=== PATIENT | male | born 1935 | race Caucasian/White ===

== ENCOUNTER 2018-08-04 11:07 | Inpatient (IN) | payer MEDICARE, MEDICAID ==
[~2018-08-04] VITALS: Ht 177.8 cm; Wt 87.3 kg
[2018-08-04] MEDS ORDERED: FUROSEMIDE 40MG/4ML VIAL IV ONE (11:45)
[2018-08-04 12:20] LABS: BASOPHILS % 0.4 % (0.0-2.0); EOSINOPHILS % 0.8 % (0.0-5.0); HEMATOCRIT. 40.3 % (42.0-52.0); HEMOGLOBIN. 13.4 g/dL (14.0-18.0); LYMPHOCYTES % 15.7 % (20.0-50.0); MEAN CORPUSCULAR HEMOGLOBIN 29.2 pg (28.0-32.0); MEAN CORPUSCULAR VOLUME 87.8 fL (80.0-94.0); MONOCYTES % 7.7 % (2.0-8.0); NEUTROPHILS % 75.4 % (40.0-76.0); PLATELET 309 x1000/uL (130-400); RED BLOOD CELL COUNT 4.59 mill/uL (4.7-6.1); RED CELL DISTRIBUTION WIDTH 14.5 % (11.6-14.6)
[2018-08-04 12:26] LABS: INR 1.5; PARTIAL THROMBOPLASTIN TIME 53.8 sec (23.4-31.0); PROTHROMBIN TIME 14.5 sec (9.1-11.1)
[2018-08-04 12:32] LABS: CHLORIDE 99 mEq/L (98-107)
[2018-08-04 12:39] LABS: ETHANOL BLOOD < 10 mg/dL
[2018-08-04 13:25] LABS: CLARITY URINE CLEAR (CLEAR); COLOR URINE YELLOW (YELLOW); KETONES URINE NEGATIVE (NEGATIVE); LEUKOCYTE ESTERASE URINE 2+ (NEGATIVE); NITRITE URINE NEGATIVE (NEGATIVE); OCCULT BLOOD URINE NEGATIVE (NEGATIVE); PROTEIN URINE NEGATIVE (NEGATIVE); SPECIFIC GRAVITY URINE 1.012 (1.005-1.030); UROBILINOGEN URINE 0.2 E.U./dL (0.2-1.0)
[2018-08-04] MEDS ORDERED: DILTIAZEM HCL 5MG/ML 5ML VIAL IV SCH (17:00)
[2018-08-04] MEDS ORDERED: ONDANSETRON HCL 4MG/2ML INJ IV ONE (17:15)
[2018-08-04] MEDS ORDERED: ACETAMINOPHEN 325MG TABLET PO PRN (20:15)
[2018-08-04] MEDS ORDERED: ENOXAPARIN 40MG/0.4ML SYR SUBCUT SCH (20:15)
[2018-08-04] MEDS ORDERED: CLONIDINE 0.1MG TABLET PO PRN (20:15)
[2018-08-04] MEDS ORDERED: HYDROCODONE/ACETAMINOPHEN 5/325MG TABLET PO PRN (20:15)
[2018-08-04] MEDS ORDERED: ONDANSETRON HCL 4MG/2ML INJ IV PRN (20:15)
[2018-08-04 22:00] VITALS: BP 136/87
[2018-08-04 22:49] VITALS: BP 136/87
[2018-08-05] VITALS (11 sets, daily range): BP systolic 98–150; BP diastolic 56–83
[2018-08-05 00:59] LABS: CREATINE KINASE MB FRACTION 1.1 ng/mL (0.5-3.6)
[2018-08-05] MEDS ORDERED: UBID300C PO (01:40)
[2018-08-05] MEDS ORDERED: DABI150C MT (01:40)
[2018-08-05] MEDS ORDERED: LORA10TA7 PO (01:40)
[2018-08-05] MEDS ORDERED: MIRA25TA PO (01:40)
[2018-08-05] MEDS ORDERED: CHOL200010 PO (01:40)
[2018-08-05] MEDS ORDERED: ACET-2708 PO (01:40)
[2018-08-05] MEDS ORDERED: POTA99TA4 PO (01:40)
[2018-08-05] MEDS ORDERED: METO-539 MT (01:40)
[2018-08-05] MEDS ORDERED: [UNRECOGNIZED DRUG - CODE] PO (01:50)
[2018-08-05] MEDS ORDERED: ALPR0.5T PO (01:50)
[2018-08-05] MEDS ORDERED: SPIR25TA6 PO (01:50)
[2018-08-05] MEDS ORDERED: FURO80TA3 PO (01:50)
[2018-08-05] MEDS ORDERED: GLV55 PO (01:50)
[2018-08-05 06:15] LABS: BASOPHILS % 0.3 % (0.0-2.0); EOSINOPHILS % 0.3 % (0.0-5.0); HEMATOCRIT. 39.8 % (42.0-52.0); HEMOGLOBIN. 13.1 g/dL (14.0-18.0); LYMPHOCYTES % 13.2 % (20.0-50.0); MEAN CORPUSCULAR VOLUME 88.2 fL (80.0-94.0); MEAN PLATELET VOLUME 8.1 fl (7.4-10.4); MONOCYTES % 7.1 % (2.0-8.0); NEUTROPHILS % 79.1 % (40.0-76.0); PLATELET 281 x1000/uL (130-400); RED BLOOD CELL COUNT 4.51 mill/uL (4.7-6.1); RED CELL DISTRIBUTION WIDTH 14.5 % (11.6-14.6)
[2018-08-05 06:36] LABS: CHLORIDE 101 mEq/L (98-107)
[2018-08-05 06:44] LABS: CREATINE KINASE 36 IU/L (39-308); CREATINE KINASE MB FRACTION 1.1 ng/mL (0.5-3.6); HDL CHOLESTEROL 44 mg/dL (40-59); LDL CHOLESTEROL 83 mg/dL (5-100)
[2018-08-05] MEDS ORDERED: DEXTROSE 50% WATER 50ML SYRINGE IV PRN (06:45)
[2018-08-05] MEDS: BLOOD SUGAR DIAGNOSTIC STRIP TEST SCH ×4 (07:39→21:11)
[2018-08-05] MEDS: INSULIN LISPRO 100 UNITS/ML SUBCUT SCH ×4 (08:00→21:18)
[2018-08-05] MEDS ORDERED: FUROSEMIDE 40MG/4ML VIAL IV SCH (09:00)
[2018-08-05] MEDS ORDERED: CEFTRIAXONE 2 G PREMIX 50 ML IV SCH (17:00)
[2018-08-05] MEDS: FUROSEMIDE 40MG/4ML VIAL IV SCH (17:56)
[2018-08-05] MEDS: APIXABAN 5 MG TABLET PO SCH (17:56)
[2018-08-05] MEDS: NITROGLYCERIN OINT 1GM/INCH UDPKT TD SCH (21:16)
[2018-08-06] VITALS (14 sets, daily range): BP systolic 100–137; BP diastolic 52–84
[2018-08-06 06:19] LABS: BASOPHILS % 0.6 % (0.0-2.0); EOSINOPHILS % 0.7 % (0.0-5.0); HEMATOCRIT. 39.5 % (42.0-52.0); HEMOGLOBIN. 13.3 g/dL (14.0-18.0); LYMPHOCYTES % 17.8 % (20.0-50.0); MEAN CORPUSCULAR HEMOGLOBIN 29.5 pg (28.0-32.0); MEAN CORPUSCULAR VOLUME 87.6 fL (80.0-94.0); MEAN PLATELET VOLUME 8.5 fl (7.4-10.4); MONOCYTES % 8.9 % (2.0-8.0); PLATELET 270 x1000/uL (130-400); RED BLOOD CELL COUNT 4.51 mill/uL (4.7-6.1); RED CELL DISTRIBUTION WIDTH 14.3 % (11.6-14.6)
[2018-08-06] MEDS: BLOOD SUGAR DIAGNOSTIC STRIP TEST SCH ×4 (07:30→20:06)
[2018-08-06] MEDS: INSULIN LISPRO 100 UNITS/ML SUBCUT SCH ×4 (08:00→21:03)
[2018-08-06] MEDS: APIXABAN 5 MG TABLET PO SCH ×2 (08:52→18:51)
[2018-08-06] MEDS: FUROSEMIDE 40MG/4ML VIAL IV SCH ×2 (08:52→18:51)
[2018-08-06] MEDS: NITROGLYCERIN OINT 1GM/INCH UDPKT TD SCH ×2 (08:53→21:04)
[2018-08-06] MEDS: POTASSIUM CHLORIDE 10MEQ TABLET SR PO SCH (08:53)
[2018-08-06] MEDS ORDERED: POLYETHYLENE GLYCOL 3350 (17GM) 1 DOSE PACK PO SCH (12:45)
[2018-08-06] MEDS ORDERED: NA PHOS,M-B/NA PHOS,DI-BA ENEMA 118ML PR SCH (12:45)
[2018-08-06] MEDS ORDERED: CEFTRIAXONE 2 G in DEXTROSE 5% WATER 50 ML IV SCH (17:00)
[2018-08-06] MEDS: DOCUSATE SODIUM 100MG CAPSULE PO PRN (18:51)
[2018-08-06] MEDS: NITROFURANTOIN 100MG M/M CAPSULE PO SCH (21:01)
[2018-08-06] MEDS: ALPRAZOLAM 0.5 MG TABLET PO PRN (21:01)
[2018-08-07] VITALS (10 sets, daily range): BP systolic 97–127; BP diastolic 53–77
[2018-08-07 07:19] LABS: BASOPHILS % 0.5 % (0.0-2.0); EOSINOPHILS % 1.1 % (0.0-5.0); HEMATOCRIT. 38.7 % (42.0-52.0); HEMOGLOBIN. 12.9 g/dL (14.0-18.0); LYMPHOCYTES % 22.6 % (20.0-50.0); MEAN CORPUSCULAR HEMOGLOBIN 29.2 pg (28.0-32.0); MEAN CORPUSCULAR VOLUME 87.5 fL (80.0-94.0); MEAN PLATELET VOLUME 8.4 fl (7.4-10.4); MONOCYTES % 9.6 % (2.0-8.0); NEUTROPHILS % 66.2 % (40.0-76.0); PLATELET 259 x1000/uL (130-400); RED BLOOD CELL COUNT 4.42 mill/uL (4.7-6.1); RED CELL DISTRIBUTION WIDTH 14.2 % (11.6-14.6)
[2018-08-07] MEDS: BLOOD SUGAR DIAGNOSTIC STRIP TEST SCH ×4 (07:30→20:57)
[2018-08-07] MEDS: NITROGLYCERIN OINT 1GM/INCH UDPKT TD SCH ×2 (08:20→21:01)
[2018-08-07] MEDS: INSULIN LISPRO 100 UNITS/ML SUBCUT SCH ×4 (08:21→21:07)
[2018-08-07] MEDS: APIXABAN 5 MG TABLET PO SCH ×2 (08:22→18:31)
[2018-08-07] MEDS: POTASSIUM CHLORIDE 10MEQ TABLET SR PO SCH (08:22)
[2018-08-07] MEDS: FUROSEMIDE 40MG/4ML VIAL IV SCH ×2 (08:22→18:31)
[2018-08-07] MEDS: NITROFURANTOIN 100MG M/M CAPSULE PO SCH ×2 (08:22→21:01)
[2018-08-07] MEDS: ALPRAZOLAM 0.5 MG TABLET PO PRN ×2 (10:33→23:06)
[2018-08-08] VITALS: BP 122/66
[2018-08-08 04:00] VITALS: BP 129/67
[2018-08-08] MEDS: BLOOD SUGAR DIAGNOSTIC STRIP TEST SCH ×2 (06:28→12:04)
[2018-08-08 07:05] LABS: BASOPHILS % 0.5 % (0.0-2.0); EOSINOPHILS % 1.3 % (0.0-5.0); HEMATOCRIT. 38.3 % (42.0-52.0); LYMPHOCYTES % 23.3 % (20.0-50.0); MEAN CORPUSCULAR HEMOGLOBIN 29.7 pg (28.0-32.0); MEAN CORPUSCULAR VOLUME 87.2 fL (80.0-94.0); MEAN PLATELET VOLUME 8.1 fl (7.4-10.4); MONOCYTES % 10.9 % (2.0-8.0); PLATELET 275 x1000/uL (130-400); RED BLOOD CELL COUNT 4.39 mill/uL (4.7-6.1); RED CELL DISTRIBUTION WIDTH 14.2 % (11.6-14.6)
[2018-08-08 08:00] VITALS: BP 125/63
[2018-08-08] MEDS: NITROFURANTOIN 100MG M/M CAPSULE PO SCH (08:08)
[2018-08-08] MEDS: FUROSEMIDE 40MG/4ML VIAL IV SCH (08:08)
[2018-08-08] MEDS: POTASSIUM CHLORIDE 10MEQ TABLET SR PO SCH (08:08)
[2018-08-08] MEDS: NITROGLYCERIN OINT 1GM/INCH UDPKT TD SCH (08:08)
[2018-08-08] MEDS: DOCUSATE SODIUM 100MG CAPSULE PO PRN (08:08)
[2018-08-08] MEDS: APIXABAN 5 MG TABLET PO SCH (08:09)
[2018-08-08] MEDS: INSULIN LISPRO 100 UNITS/ML SUBCUT SCH ×2 (08:10→13:30)
[2018-08-08] MEDS ORDERED: POTASSIUM CHLORIDE 20MEQ TABLET SR PO NR (09:30)
[2018-08-08] MEDS ORDERED: NA PHOS,M-B/NA PHOS,DI-BA ENEMA 118ML PR SCH (10:30)
[2018-08-08] MEDS ORDERED: LACTULOSE 20G/30ML UDC PO SCH (10:30)
[2018-08-08 12:00] VITALS: BP 131/58
[2018-08-08 13:39] VITALS: BP 131/58
== END 2018-08-08 15:08 | disposition home health service (06) | DRG 871 ==
LOC: ER 11:07 → 5EST 16:43 → EDBEDREQ 16:45 → EDBEDREQTM 16:45 → EDBEDREQSVC 17:08 → ENRESERV 19:59 → 5EST 08-05 00:07 → 6WST 08-07 23:02
PROVIDERS: ADMIT Hospitalist; ATTEND Hospitalist
DX: A40.9 Streptococcal sepsis, unspecified (principal); J96.00 Acute respiratory failure, unspecified whether with hypoxia or hypercapnia; I50.43 Acute on chronic combined systolic (congestive) and diastolic (congestive) heart failure; D68.59 Other primary thrombophilia; I48.92 Unspecified atrial flutter; N39.0 Urinary tract infection, site not specified; B95.2 Enterococcus as the cause of diseases classified elsewhere; E11.9 Type 2 diabetes mellitus without complications; F41.9 Anxiety disorder, unspecified; H91.90 Unspecified hearing loss, unspecified ear; I11.0 Hypertensive heart disease with heart failure; I25.10 Atherosclerotic heart disease of native coronary artery without angina pectoris; I27.20 Pulmonary hypertension, unspecified; I34.0 Nonrheumatic mitral (valve) insufficiency; I44.7 Left bundle-branch block, unspecified; I48.2 Chronic atrial fibrillation; K59.00 Constipation, unspecified; Z79.01 Long term (current) use of anticoagulants; Z79.02 Long term (current) use of antithrombotics/antiplatelets; Z79.4 Long term (current) use of insulin; Z98.52 Vasectomy status
CPT/HCPCS: 36415; 71045; 80048; 80061; 82550; 82553; 82962; 83880; 84484; 87077; 87186; 93005; 93306; 93970; 96374; 96375; 97162; 97535; 99285; G0482; J0696; J1815; J1940; J2405; J3490; J7050; J7060

== ENCOUNTER 2018-11-18 09:45 | Inpatient (IN) | payer MEDICARE, MEDICAID ==
[~2018-11-18] VITALS: Ht 175.3 cm; Wt 103.0 kg
[~2018-11-18 09:45] MED LIST: ACET-2708 PO; ALPR0.5T PO; CHOL200010 PO; FURO80TA3 PO; GLV55 PO; LORA10TA7 PO; METO-539 MT; MIRA25TA PO; POTA99TA4 PO; SPIR25TA6 PO; UBID300C PO; [UNRECOGNIZED DRUG - CODE] PO
[2018-11-18] MEDS ORDERED: SODIUM CHLORIDE 0.9% 1,000 ML IV ONE (10:21)
[2018-11-18] MEDS ORDERED: MORPHINE SULFATE 4 MG/ML CPJ (NOT FOR IM USE) IV STA (10:21)
[2018-11-18] MEDS ORDERED: ONDANSETRON HCL 4MG/2ML INJ IV STA (10:21)
[2018-11-18 11:04] LABS: BASOPHILS % 0.2 % (0.0-2.0); HEMOGLOBIN. 13.2 g/dL (14.0-18.0); LYMPHOCYTES % 8.2 % (20.0-50.0); MEAN CORPUSCULAR HEMOGLOBIN 26.1 pg (28.0-32.0); MEAN CORPUSCULAR VOLUME 83.2 fL (80.0-94.0); MEAN PLATELET VOLUME 9.6 fl (7.4-10.4); MONOCYTES % 11.1 % (2.0-8.0); NEUTROPHILS % 80.5 % (40.0-76.0); PLATELET 217 x1000/uL (130-400); RED BLOOD CELL COUNT 5.04 mill/uL (4.7-6.1); RED CELL DISTRIBUTION WIDTH 15.3 % (11.6-14.6)
[2018-11-18 13:33] LABS: CLARITY URINE CLOUDY (CLEAR); COLOR URINE DARK YELLOW (YELLOW); KETONES URINE NEGATIVE (NEGATIVE); LEUKOCYTE ESTERASE URINE 1+ (NEGATIVE); NITRITE URINE NEGATIVE (NEGATIVE); OCCULT BLOOD URINE NEGATIVE (NEGATIVE); PROTEIN URINE NEGATIVE (NEGATIVE); SPECIFIC GRAVITY URINE 1.017 (1.005-1.030)
[2018-11-18 14:36] LABS: CHLORIDE 100 mEq/L (98-107)
[2018-11-18] MEDS ORDERED: CALCIUM CHLORIDE 1GM/10ML SYR IV ONE (14:45)
[2018-11-18] MEDS ORDERED: INSULIN REGULAR (HUMULIN R) 300UNITS/3ML IV ONE (14:45)
[2018-11-18] MEDS ORDERED: DEXTROSE 50% WATER 50ML SYRINGE IV ONE (14:45)
[2018-11-18] MEDS ORDERED: SODIUM BICARBONATE 8.4% 1 MEQ/ML 50ML SYR IV ONE (14:45)
[2018-11-18] MEDS ORDERED: ASPIRIN 325MG TABLET PO ONE (15:15)
[2018-11-18 16:45] VITALS: BP 135/71
[2018-11-18] MEDS ORDERED: SODIUM POLYSTYRENE SULFONATE 15 G/60 ML BOT PO NR (18:00)
[2018-11-18] MEDS ORDERED: IPRATROPIUM/ALBUTEROL 0.5-3(2.5)MG/3ML NEB HHN PRN (18:15)
[2018-11-18 18:49] VITALS: BP 131/88
[2018-11-18] MEDS ORDERED: DEXTROSE 50% WATER 50ML SYRINGE IV PRN (19:30)
[2018-11-18] MEDS: DEXT 5%/0.9% NACL 1,000 ML IV SCH (19:54)
[2018-11-18 20:00] VITALS: BP 136/87
[2018-11-18] MEDS: PIPERACILLIN/TAZ 3.375G PREMIX 50 ML IV SCH (20:22)
[2018-11-18] MEDS: INSULIN LISPRO 100 UNITS/ML SUBCUT SCH (21:00)
[2018-11-18] MEDS: BLOOD SUGAR DIAGNOSTIC STRIP TEST SCH (21:12)
[2018-11-18] MEDS: DILTIAZEM HCL 60MG TABLET PO SCH (21:13)
[2018-11-18] MEDS: FAMOTIDINE 20MG/2ML VIAL IV SCH (21:13)
[2018-11-18] MEDS: ENOXAPARIN 30MG/0.3ML SYR SUBCUT SCH (21:14)
[2018-11-18] MEDS: INSULIN GLARGINE UD 100 UNITS/ML SYR SUBCUT SCH (21:16)
[2018-11-19] VITALS: BP 122/70
[2018-11-19] MEDS: IPRATROPIUM/ALBUTEROL 0.5-3(2.5)MG/3ML NEB HHN SCH ×4 (01:16→22:13)
[2018-11-19] MEDS: PIPERACILLIN/TAZ 3.375G PREMIX 50 ML IV SCH ×4 (01:34→21:12)
[2018-11-19 04:00] VITALS: BP 144/83
[2018-11-19] MEDS: DILTIAZEM HCL 60MG TABLET PO SCH ×3 (05:49→21:12)
[2018-11-19 06:20] LABS: HEMATOCRIT. 41.8 % (42.0-52.0); HEMOGLOBIN. 13.2 g/dL (14.0-18.0); MEAN CORPUSCULAR HEMOGLOBIN 26.2 pg (28.0-32.0); MEAN CORPUSCULAR VOLUME 83.2 fL (80.0-94.0); MEAN PLATELET VOLUME 9.4 fl (7.4-10.4); PLATELET 157 x1000/uL (130-400); RED BLOOD CELL COUNT 5.02 mill/uL (4.7-6.1); RED CELL DISTRIBUTION WIDTH 15.5 % (11.6-14.6)
[2018-11-19] MEDS: BLOOD SUGAR DIAGNOSTIC STRIP TEST SCH ×4 (06:34→21:12)
[2018-11-19] MEDS: INSULIN LISPRO 100 UNITS/ML SUBCUT SCH ×4 (07:50→21:54)
[2018-11-19 08:00] VITALS: BP 108/56
[2018-11-19] MEDS: ENOXAPARIN 30MG/0.3ML SYR SUBCUT SCH ×2 (09:51→21:13)
[2018-11-19] MEDS: INSULIN GLARGINE UD 100 UNITS/ML SYR SUBCUT SCH ×2 (10:00→21:55)
[2018-11-19 12:00] VITALS: BP 130/53
[2018-11-19] MEDS ORDERED: SODIUM POLYSTYRENE SULFONATE 15 G/60 ML BOT PO NR (12:30)
[2018-11-19] MEDS: DEXT 5%/0.9% NACL 1,000 ML IV SCH (13:10)
[2018-11-19 16:00] VITALS: BP 115/62
[2018-11-19] MEDS ORDERED: INSULIN REGULAR (HUMULIN R) UD 100 UNITS/ML SYR IV NR (16:30)
[2018-11-19 20:00] VITALS: BP 123/77
[2018-11-19] MEDS: FAMOTIDINE 20MG/2ML VIAL IV SCH (21:12)
[2018-11-20] VITALS: BP 137/77
[2018-11-20] MEDS: HYDROMORPHONE HCL/PF 2MG/ML CPJ IV PRN (01:59)
[2018-11-20] MEDS: PIPERACILLIN/TAZ 3.375G PREMIX 50 ML IV SCH ×4 (02:12→21:17)
[2018-11-20] MEDS: IPRATROPIUM/ALBUTEROL 0.5-3(2.5)MG/3ML NEB HHN SCH ×4 (02:50→20:59)
[2018-11-20 04:00] VITALS: BP 134/84
[2018-11-20] MEDS: DILTIAZEM HCL 60MG TABLET PO SCH ×3 (06:06→21:17)
[2018-11-20] MEDS: BLOOD SUGAR DIAGNOSTIC STRIP TEST SCH ×4 (06:23→20:39)
[2018-11-20 07:00] LABS: HEMATOCRIT. 42.3 % (42.0-52.0); HEMOGLOBIN. 13.3 g/dL (14.0-18.0); MEAN CORPUSCULAR HEMOGLOBIN 26.1 pg (28.0-32.0); MEAN CORPUSCULAR VOLUME 83.1 fL (80.0-94.0); MEAN PLATELET VOLUME 9.6 fl (7.4-10.4); PLATELET 166 x1000/uL (130-400); RED BLOOD CELL COUNT 5.09 mill/uL (4.7-6.1); RED CELL DISTRIBUTION WIDTH 15.6 % (11.6-14.6)
[2018-11-20 08:00] VITALS: BP 107/68
[2018-11-20] MEDS: INSULIN LISPRO 100 UNITS/ML SUBCUT SCH ×4 (08:48→21:15)
[2018-11-20] MEDS: ENOXAPARIN 30MG/0.3ML SYR SUBCUT SCH (08:51)
[2018-11-20] MEDS: INSULIN GLARGINE UD 100 UNITS/ML SYR SUBCUT SCH ×2 (09:49→21:16)
[2018-11-20] MEDS ORDERED: FUROSEMIDE 20MG/2ML VIAL IVP SCH (10:00)
[2018-11-20 12:00] VITALS: BP 110/62
[2018-11-20 12:51] LABS: PLATELET ESTIMATE NORMAL
[2018-11-20 16:00] VITALS: BP 121/56
[2018-11-20 20:04] VITALS: BP 127/47
[2018-11-20] MEDS: FAMOTIDINE 20MG/2ML VIAL IV SCH (20:38)
[2018-11-21 00:11] VITALS: BP 118/51
[2018-11-21] MEDS: IPRATROPIUM/ALBUTEROL 0.5-3(2.5)MG/3ML NEB HHN SCH ×4 (01:39→21:29)
[2018-11-21 04:46] VITALS: BP 98/43
[2018-11-21] MEDS: PIPERACILLIN/TAZ 3.375G PREMIX 50 ML IV SCH ×3 (05:17→21:39)
[2018-11-21] MEDS: DILTIAZEM HCL 60MG TABLET PO SCH ×3 (05:17→21:39)
[2018-11-21] MEDS: BLOOD SUGAR DIAGNOSTIC STRIP TEST SCH ×4 (06:55→21:39)
[2018-11-21] MEDS: INSULIN LISPRO 100 UNITS/ML SUBCUT SCH ×4 (07:50→21:48)
[2018-11-21 08:00] VITALS: BP 103/49
[2018-11-21] MEDS: ENOXAPARIN 40MG/0.4ML SYR SUBCUT SCH (08:51)
[2018-11-21 09:44] LABS: PLATELET ESTIMATE NORMAL
[2018-11-21] MEDS: INSULIN GLARGINE UD 100 UNITS/ML SYR SUBCUT SCH ×2 (10:15→21:48)
[2018-11-21] MEDS: FUROSEMIDE 40MG/4ML VIAL IVP SCH ×2 (11:08→17:45)
[2018-11-21 12:00] VITALS: BP 112/67
[2018-11-21 16:00] VITALS: BP 109/59
[2018-11-21 20:00] VITALS: BP 118/61
[2018-11-21] MEDS: FAMOTIDINE 20MG/2ML VIAL IV SCH (21:39)
[2018-11-21] MEDS: HYDROMORPHONE HCL/PF 2MG/ML CPJ IV PRN (23:45)
[2018-11-22] VITALS (8 sets, daily range): BP systolic 106–129; BP diastolic 60–73
[2018-11-22] MEDS: IPRATROPIUM/ALBUTEROL 0.5-3(2.5)MG/3ML NEB HHN SCH ×4 (02:52→20:41)
[2018-11-22] MEDS: PIPERACILLIN/TAZ 3.375G PREMIX 50 ML IV SCH (05:51)
[2018-11-22] MEDS: FUROSEMIDE 40MG/4ML VIAL IVP SCH (05:52)
[2018-11-22] MEDS: BLOOD SUGAR DIAGNOSTIC STRIP TEST SCH ×4 (05:52→21:27)
[2018-11-22] MEDS: DILTIAZEM HCL 60MG TABLET PO SCH ×3 (05:52→21:26)
[2018-11-22 07:10] LABS: HEMATOCRIT. 39.5 % (42.0-52.0); HEMOGLOBIN. 12.3 g/dL (14.0-18.0); MEAN CORPUSCULAR VOLUME 83.4 fL (80.0-94.0); MEAN PLATELET VOLUME 9.5 fl (7.4-10.4); PLATELET 141 x1000/uL (130-400); RED BLOOD CELL COUNT 4.74 mill/uL (4.7-6.1); RED CELL DISTRIBUTION WIDTH 15.9 % (11.6-14.6)
[2018-11-22] MEDS: INSULIN LISPRO 100 UNITS/ML SUBCUT SCH ×4 (08:51→21:29)
[2018-11-22] MEDS: ENOXAPARIN 40MG/0.4ML SYR SUBCUT SCH (08:54)
[2018-11-22 13:08] LABS: PLATELET ESTIMATE NORMAL
[2018-11-22] MEDS: INSULIN GLARGINE UD 100 UNITS/ML SYR SUBCUT SCH ×2 (13:11→21:28)
[2018-11-22] MEDS: PIPERACILLIN/TAZ 2.25G PREMIX 50 ML IV SCH ×2 (13:17→21:26)
[2018-11-22] MEDS ORDERED: FUROSEMIDE 40MG/4ML VIAL IVP NR (15:00)
[2018-11-22] MEDS: HYDROMORPHONE HCL/PF 2MG/ML CPJ IV PRN (18:04)
[2018-11-22] MEDS: FAMOTIDINE 20MG/2ML VIAL IV SCH (21:27)
[2018-11-23] VITALS: BP 120/59
[2018-11-23] MEDS: HYDROMORPHONE HCL/PF 2MG/ML CPJ IV PRN (01:44)
[2018-11-23] MEDS: IPRATROPIUM/ALBUTEROL 0.5-3(2.5)MG/3ML NEB HHN SCH ×3 (02:16→15:39)
[2018-11-23 04:00] VITALS: BP 115/64
[2018-11-23] MEDS: DILTIAZEM HCL 60MG TABLET PO SCH ×2 (05:16→13:51)
[2018-11-23] MEDS: PIPERACILLIN/TAZ 2.25G PREMIX 50 ML IV SCH ×2 (05:16→13:51)
[2018-11-23] MEDS: BLOOD SUGAR DIAGNOSTIC STRIP TEST SCH ×3 (06:44→17:19)
[2018-11-23] MEDS: INSULIN LISPRO 100 UNITS/ML SUBCUT SCH ×3 (07:50→17:19)
[2018-11-23] MEDS ORDERED: FUROSEMIDE 40MG/4ML VIAL IVP SCH (09:00)
[2018-11-23] MEDS: ENOXAPARIN 40MG/0.4ML SYR SUBCUT SCH (09:14)
[2018-11-23] MEDS: INSULIN GLARGINE UD 100 UNITS/ML SYR SUBCUT SCH (09:21)
[2018-11-23 12:37] LABS: PHOSPHORUS 5.6 mg/dL (2.5-4.9)
[2018-11-23 13:37] LABS: HEMATOCRIT. 39.4 % (42.0-52.0); HEMOGLOBIN. 12.3 g/dL (14.0-18.0); MEAN CORPUSCULAR HEMOGLOBIN 25.9 pg (28.0-32.0); MEAN CORPUSCULAR VOLUME 82.5 fL (80.0-94.0); MEAN PLATELET VOLUME 9.5 fl (7.4-10.4); PLATELET 138 x1000/uL (130-400); RED BLOOD CELL COUNT 4.77 mill/uL (4.7-6.1); RED CELL DISTRIBUTION WIDTH 16.2 % (11.6-14.6)
[2018-11-23 17:09] LABS: PLATELET ESTIMATE NORMAL
[2018-11-23 19:48] VITALS: BP 127/69
[2018-11-23 20:00] VITALS: BP 111/64
[2018-11-24] MEDS ORDERED: LORATADINE 10MG TABLET PO SCH (09:00)
== END 2018-11-23 21:25 | disposition hospice, home (50) | DRG 871 ==
LOC: ER 09:45 → 6WST 14:17 → EDBEDREQ 14:20 → ENRESERV 14:30
PROVIDERS: ADMIT Internal Medicine; ATTEND Internal Medicine
DX: A41.9 Sepsis, unspecified organism (principal); N17.0 Acute kidney failure with tubular necrosis; J96.00 Acute respiratory failure, unspecified whether with hypoxia or hypercapnia; I50.23 Acute on chronic systolic (congestive) heart failure; I13.0 Hypertensive heart and chronic kidney disease with heart failure and stage 1 through stage 4 chronic kidney disease, or unspecified chronic kidney disease; G93.40 Encephalopathy, unspecified; I42.9 Cardiomyopathy, unspecified; I48.92 Unspecified atrial flutter; N18.9 Chronic kidney disease, unspecified; E11.22 Type 2 diabetes mellitus with diabetic chronic kidney disease; I48.2 Chronic atrial fibrillation; R62.7 Adult failure to thrive; F03.90 Unspecified dementia, unspecified severity, without behavioral disturbance, psychotic disturbance, mood disturbance, and anxiety; I44.7 Left bundle-branch block, unspecified; E87.5 Hyperkalemia; E86.0 Dehydration; I27.20 Pulmonary hypertension, unspecified; E11.40 Type 2 diabetes mellitus with diabetic neuropathy, unspecified; H91.90 Unspecified hearing loss, unspecified ear; F41.9 Anxiety disorder, unspecified; Z51.5 Encounter for palliative care; I08.1 Rheumatic disorders of both mitral and tricuspid valves; I25.10 Atherosclerotic heart disease of native coronary artery without angina pectoris; Z66 Do not resuscitate; Z87.891 Personal history of nicotine dependence; Z79.01 Long term (current) use of anticoagulants; Z79.4 Long term (current) use of insulin; Z83.3 Family history of diabetes mellitus; Z68.33 Body mass index [BMI] 33.0-33.9, adult
CPT/HCPCS: 36415; 71045; 74176; 80048; 82962; 83735; 83880; 84100; 84132; 84484; 87070; 93005; 93306; 94640; 99285; C1893; J1170; J1650; J1815; J1940; J2270; J2405; J2543; J3490; J7030; J7040; J7042; J7050; J7060; J7620; A4315